=== PATIENT | male | born 1980 | race Two or more races ===

== ENCOUNTER 2017-01-26 11:23 | Emergency (ER) | payer SELFPAY ==
[~2017-01-26] VITALS: Ht 177.8 cm; Wt 97.5 kg
[2017-01-26 11:47] VITALS: BP 151/78
[2017-01-26] MEDS ORDERED: KETOROLAC TROMETH 60MG/2ML VIAL IM ONE (13:30)
== END 2017-01-26 14:44 | disposition home or self-care (01) ==
LOC: ER 11:23
DX: S83.91XA Sprain of unspecified site of right knee, initial encounter (principal); X50.9XXA Other and unspecified overexertion or strenuous movements or postures, initial encounter; Y93.89 Activity, other specified; Y99.8 Other external cause status; Y92.89 Other specified places as the place of occurrence of the external cause
CPT/HCPCS: 73564; 96372; 99284; J1885; 73560

== ENCOUNTER 2019-10-05 07:04 | Emergency (ER) | payer SELFPAY ==
[~2019-10-05] VITALS: Ht 175.3 cm; Wt 93.0 kg
[2019-10-05 07:24] VITALS: BP 103/50
== END 2019-10-05 07:59 | disposition home or self-care (01) ==
LOC: MERGE 07:06 → ER 07:06
DX: R07.89 Other chest pain (principal); F10.10 Alcohol abuse, uncomplicated; V43.52XA Car driver injured in collision with other type car in traffic accident, initial encounter; Y93.89 Activity, other specified; Y92.410 Unspecified street and highway as the place of occurrence of the external cause; Y99.8 Other external cause status